=== PATIENT | male | born 1970 | race Caucasian/White ===

== ENCOUNTER 2017-06-04 23:06 | Emergency (ER) | payer OTHER ==
[~2017-06-04] VITALS: Ht 167.6 cm; Wt 127.2 kg
[2017-06-04 23:14] VITALS: Ht 167.6 cm; Wt 127.2 kg
[2017-06-04] MEDS ORDERED: morphine 4 MG/ML VIAL IV STA (23:34)
[2017-06-04] MEDS ORDERED: ONDANSETRON 4 MG INJ IV STA (23:34)
[2017-06-04] MEDS ORDERED: SOD CHLORIDE 0.9% 1,000 ML IV STA (23:34)
--- NOTE | 2017-06-04 23:48 | ERD ---
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 Patient describes the pain as sharp pain, 9/10 scale, it started after eating cereals tonight. Patient denies any nausea vomiting diarrhea or constipation. Patient denies any fever or chills. Patient denies any dyspnea on exertion or dyspnea on lying down. Patient denies any dizziness. ROS All systems reviewed and are negative except as per history of present illness. Medications Home Meds Reported Medications [none] Unknown Strength No Conflict Check 06/04/17 Allergies Allergies: Coded Allergies: No Known Allergy (Unverified , 06/04/17) PMhx/Soc Medical and Surgical Hx: pt denies Medical Hx, pt denies Surgical Hx Hx Alcohol Use: Yes (social) Hx Substance Use: No Hx Tobacco Use: Yes Smoking Status: Current every day smoker FmHx Family History: No coronary disease, No diabetes, No other Physical Exam Vitals Vital Signs Date Time Temp Pulse Resp B/P Pulse Ox O2 Delivery O2 Flow Rate FiO2 06/04/17 23:14 98.3 72 24 170/88 98 Physical Exam GENERAL: The patient is well developed and appropriate for usual state of health, in no apparent distress. CHEST: Clear to auscultation bilaterally. There are no rales, wheezes or rhonchi. HEART: Regular rate and rhythm. No murmurs, clicks, rubs or gallops. No S3 or S4. ABDOMEN: Soft, noted epigastric tenderness. Good bowel sounds. No rebound or guarding. No gross peritonitis. No gross organomegaly or masses. No Sutherland sign or McBurney point tenderness. BACK: No midline or flank tenderness. EXTREMITIES: Equal pulses bilaterally. There is no peripheral clubbing, cyanosis or edema. No focal swelling or erythema. Full range of motion. Grossly neurovascularly intact. NEURO: Alert and oriented. Cranial nerves 2-12 intact. Motor strength in all 4 extremities with 5/5 strength. Sensation grossly intact. Normal speech and gait. SKIN: There is no apparent rash or petechia. The skin is warm and dry. HEMATOLOGIC AND LYMPHATIC: There is no evidence of excessive bruising or lymphedema. No gross cervical, axillary, or inguinal lymphadenopathy. Result Diagram: 06/04/17 2345 06/04/17 2345 Results 24 hrs Laboratory Tests Test 06/04/17 23:45 White Blood Count 7.410^3/ul Red Blood Count 5.1410^6/ul Hemoglobin 16.5g/dl Hematocrit 47.5% Mean Corpuscular Volume 92.4fl Mean Corpuscular Hemoglobin 32.1pg Mean Corpuscular Hemoglobin Concent 34.7g/dl Red Cell Distribution Width 12.5% Platelet Count 64030^3/UL Mean Platelet Volume 9.9fl Neutrophils % 49.3% Lymphocytes % 39.3% Monocytes % 7.7% Eosinophils % 2.6% Basophils % 0.7% Nucleated Red Blood Cells % 0.0/100WBC Neutrophils # 3.710^3/ul Lymphocytes # 2.910^3/ul Monocytes # 0.610^3/ul Eosinophils # 0.210^3/ul Basophils # 0.110^3/ul Nucleated Red Blood Cells # 0.010^3/ul Urine Color YELLOW Urine Clarity CLEAR Urine pH 5.0 Urine Specific [place] 1.016 Urine Ketones NEGATIVEmg/dL Urine Nitrite NEGATIVEmg/dL Urine Bilirubin NEGATIVEmg/dL Urine Urobilinogen NEGATIVEmg/dL Urine Leukocyte Esterase NEGATIVELeu/ul Urine Hemoglobin NEGATIVEmg/dL Urine Glucose NEGATIVEmg/dL Urine Total Protein NEGATIVEmg/dl Sodium Level 143mmol/L Potassium Level 3.9mmol/L Chloride Level 96mmol/L Carbon Dioxide Level 32mmol/L Anion Gap 19 Blood Urea Nitrogen 16mg/dl Creatinine 0.88mg/dl Glucose Level 154mg/dl Calcium Level 9.7mg/dl Total Bilirubin 0.1mg/dl Direct Bilirubin 0.00mg/dl Indirect Bilirubin 0.1mg/dl Aspartate Amino Transf (AST/SGOT) 40IU/L Alanine Aminotransferase (ALT/SGPT) 62IU/L Alkaline Phosphatase 114IU/L Troponin I < 0.012ng/ml Total Protein 7.7g/dl Albumin 4.3g/dl Globulin 3.40g/dl Albumin/Globulin Ratio 1.26 Lipase 74U/L Current Medications Medications (Trade) Dose Ordered Sig/Scarlet Route PRN Reason Start Time Stop Time Status Last Admin Dose Admin Sodium Chloride (NS) 1,000 ml @ 1,000 mls/hr Q1H STAT IV 06/04/17 23:34 06/05/17 00:33 DC 06/04/17 23:46 Morphine Sulfate (morphine) 4 mg ONCE STAT IV 06/04/17 23:34 06/04/17 23:35 DC 06/04/17 23:47 Ondansetron HCl (Zofran Inj) 4 mg ONCE STAT IV 06/04/17 23:34 06/04/17 23:35 DC 06/04/17 23:47 Famotidine (Pepcid Iv) 20 mg ONCE ONCE IV 06/05/17 00:00 06/05/17 00:06 DC 06/05/17 00:08 Morphine Sulfate 4 mg 4 mg ONCE STAT IV 06/05/17 00:04 06/05/17 00:06 DC 06/05/17 00:10 Sodium Chloride (NS) 100 ml @ ud STK-MED ONCE .ROUTE 06/05/17 00:52 06/05/17 00:53 DC 06/05/17 00:54 Iohexol (Omnipaque 300mg/ ml) 150 ml STK-MED ONCE .ROUTE 06/05/17 00:52 06/05/17 00:53 DC 06/05/17 00:53 Hydromorphone HCl (Dilaudid) 1 mg ONCE STAT IV 06/05/17 01:26 06/05/17 01:39 DC 06/05/17 01:41 Patient was given medication for pain here in emergency department, after treatment, patient verbalized feeling much better. Patient's pain is improved. Patient was given Zofran here in the emergency department. After treatment, patient was able to tolerate po fluids here in the emergency department without any vomiting. There is no signs and symptoms of dehydration. Normal saline IV bolus was given here in emergency department for rehydration, patient tolerated IV fluids. PROCEDURE: CT Abdomen and Pelvis with IV contrast. CLINICAL INDICATION: Pain. TECHNIQUE: CT scan of the abdomen and pelvis was performed on a multidetector slice CT scanner. 100 cc of Omnipaque 300 intravenous contrast material was utilized. Sagittal and coronal reformatted images were obtained from the axial source images. Images were reviewed on a high-resolution PACS workstation. Exam CTDlvol = 24 mGy and DLP = 1717 Gy-cm. One of the following 3 dose reduction techniques were used: Automated exposure control; adjustment of the mA and/or kV according to patient size; or use of iterative reconstruction technique. COMPARISON: None. FINDINGS: There is no obstruction or ileus. The appendix is visualized and normal in size and appearance without evidence for appendicitis. There is no evidence for diverticulitis. There is no free fluid. The liver is enlarged at 22 cm length.. No intrahepatic lesions are identified. There is 3.2 x 2.4 cm calcified gallstone within the gallbladder. The gallbladder is otherwise normal in appearance. There is no definite biliary ductal dilation. Pancreas is normal in appearance. The spleen is unremarkable.. There are no adrenal masses. The aorta is normal caliber. There is a 5 mm cyst in the midpole of the left kidney. Kidneys are other normal in appearance without hydronephrosis, mass or calculus. There is no perinephric collection. Ureters are of normal caliber and without evidence for an obstructing calculus The urinary bladder is contracted.. Limited evaluation lung bases is unremarkable. There are degenerative changes of the lumbar spine. IMPRESSION: 1. No obstruction or ileus. 2. Cholelithiasis. No CT evidence for cholecystitis or biliary obstruction. 3. Hepatomegaly. 4. No evidence for appendicitis or diverticulitis. 5. No obstructive uropathy. Contracted urinary bladder. 6. Degenerative changes of the lumbar spine. RPTAT: HMVK .Bruno Jimenez MD, MD Date Time Electronically viewed and signed by .Bruno Jimenez MD, MD on 06/05/2017 01:16 .K/ CC: ADAM NEUMANN NP PROCEDURE: US Abdomen (right upper quadrant). CLINICAL INDICATION: Right upper quadrant pain TECHNIQUE: Multiple real-time longitudinal and transverse images of the right upper quadrant of the abdomen were acquired utilizing a curved array transducer. Images were reviewed on a high-resolution PACS workstation. COMPARISON: CT abdomen 06/05/2017 FINDINGS: The liver is enlarged at 24.6 cm and diffusely echogenic without focal mass. This single 1.7 cm calcified gallstone within the gallbladder. Gallbladder wall is thickened and 7.1 mm. The gallbladder is otherwise unremarkable.. There is no pericholecystic fluid . No intra or extrahepatic biliary dilatation is seen. The common bile duct measures 4.53 mm in maximal dimension. The visualized portions of the pancreas are unremarkable with obscuration of the tail of the pancreas. No free fluid is identified. . The right kidney measures 12.2 cm in length. There is normal echogenicity within the right kidney. There is no perinephric fluid collection. No hydronephrosis, mass, or calculus is seen. IMPRESSION: 1. Enlarged fatty liver. 2. There is an large calcified gallstone. Associated nonspecific wall thickening. No pericholecystic fluid. 3. No evidence for biliary obstruction. RPTAT: HMVK .Bruno Jimenez MD, MD Date Time Electronically viewed and signed by .Bruno Jimenez MD, on 06/05/2017 02:57 EKG was done, read by me and is normal sinus rhythm at a rate of 62, normal axis , there is no ST changes or changes in the EKG that indicates any cardiac emergencies at this time. Patient's EKG was also reviewed by Dr. German. Impression: no acute findings on EKG Procedures/MDM Medical Decision Making: Patient symptoms is likely consistent with biliary colic. Liver function tests are normal, lipase is normal. There is low suspicion for abdominal emergencies at this time. Patients abdominal exam is normal at this time. Patients radiology exam does not show any abdominal emergencies at this time. There is low suspicion for appendicitis, cholecystitis , abdominal aortic aneurysms or peritonitis at this time. There is low suspicion for sepsis. Patient appears well and is hemodynamically stable. Disposition: Home. Condition: Stable Prescription [place], Zokp Instructions: Patient is advised to take medications as prescribed. Patient is advised to rest, increase fluid intake and do brat diet for next 1-2 days and progress as tolerated. Patient is advised that if symptoms are worse, severe abdominal pain, uncontrolled vomiting, high fever, severe flank pain, worst signs and symptoms, to return to the emergency department immediately. Otherwise, patient can follow up with primary care doctor in 5-7 days. See patient's surgeon for possible removal of the gallbladder. Departure Diagnosis: Primary Impression: Biliary colic Condition: Stable Patient Instructions: Biliary Colic With Gallstone (Confirmed) Additional Instructions: Patient is advised to take medications as prescribed. Patient is advised to rest , increase fluid intake and do brat diet for next 1-2 days and progress as tolerated. Patient is advised that if symptoms are worse, severe abdominal pain , uncontrolled vomiting, high fever, severe flank pain, worst signs and symptoms , to return to the emergency department immediately. Otherwise, patient can follow up with primary care doctor in 5-7 days. See patient's surgeon for possible removal of the gallbladder. ADAM NEUMANN NP Jun 04, 2017 23:48
[2017-06-05] MEDS ORDERED: FAMOTIDINE 20 MG INJ IV ONE
[2017-06-05] MEDS ORDERED: morphine 4 MG/ML VIAL IV STA (00:04)
[2017-06-05 00:14] LABS: ADD UMIC NO; UR ASCORBIC ACID 40 mg/dL (NEGATIVE); UR BILIRUBIN (Dip) NEGATIVE (NEGATIVE); UR BLOOD (Dip) NEGATIVE (NEGATIVE); UR CLARITY CLEAR (CLEAR); UR COLOR YELLOW (YELLOW); UR GLUCOSE (Dip) NEGATIVE (NEGATIVE); UR KETONES (Dip) NEGATIVE (NEGATIVE); UR LEUKOCYTE ESTERASE (Dip) NEGATIVE Leu/ul (NEGATIVE); UR NITRITE (Dip) NEGATIVE (NEGATIVE); UR SPECIFIC GRAVITY (Dip) 1.016 (1.003-1.030); UR TOTAL PROTEIN (Dip) NEGATIVE (NEGATIVE); UR UROBILINOGEN (Dip) NEGATIVE (NEGATIVE)
[2017-06-05 00:28] LABS: ALBUMIN 4.3 g/dl (3.3-4.9); ALBUMIN/GLOBULIN RATIO 1.26; BILIRUBIN,INDIRECT 0.1 mg/dl (0-1.1); BILIRUBIN,TOTAL 0.1 mg/dl (0.2-1.3); CALCIUM 9.7 mg/dl (8.4-10.2); CREATININE 0.88 mg/dl (0.61-1.24); POTASSIUM 3.9 mmol/L (3.5-5.1); TOTAL PROTEIN 7.7 g/dl (6.1-8.1)
[2017-06-05 00:40] LABS: WHITE BLOOD COUNT 7.4 10^3/ul (4.8-10.8)
[2017-06-05 00:41] LABS: BASOPHIL # 0.1 10^3/ul (0.0-0.1); BASOPHILS % 0.7 % (0.0-2.0); EOSINOPHILS # 0.2 10^3/ul (0.0-0.5); EOSINOPHILS % 2.6 % (0.0-7.0); HEMATOCRIT 47.5 % (42.0-52.0); HEMOGLOBIN 16.5 g/dl (14.0-18.0); LYMPHOCYTES # 2.9 10^3/ul (0.8-2.9); LYMPHOCYTES % 39.3 % (15.0-51.0); MEAN CORPUSCULAR HEMOGLOBIN 32.1 pg (29.0-33.0); MEAN CORPUSCULAR HGB CONC 34.7 g/dl (32.0-37.0); MEAN CORPUSCULAR VOLUME 92.4 fl (82.0-101.0); MEAN PLATELET VOLUME 9.9 fl (7.4-10.4); MONOCYTE # 0.6 10^3/ul (0.3-0.9); MONOCYTES % 7.7 % (0.0-11.0); NEUTROPHIL # 3.7 10^3/ul (1.6-7.5); NEUTROPHILS % 49.3 % (39.0-77.0); PLATELET COUNT 225 10^3/UL (140-415); RED BLOOD COUNT 5.14 10^6/ul (4.70-6.10); RED CELL DISTRIBUTION WIDTH 12.5 % (11.5-14.5)
[2017-06-05] MEDS ORDERED: SOD CHLORIDE 0.9% 100 ML ONE (00:52)
[2017-06-05] MEDS ORDERED: IOHEXOL 300MG/ML 150 ML BTL ONE (00:52)
--- NOTE | 2017-06-05 01:17 | RADRPT ---
PROCEDURE: CT Abdomen and Pelvis with IV contrast. CLINICAL INDICATION: Pain. TECHNIQUE: CT scan of the abdomen and pelvis was performed on a multidetector slice CT scanner. 100 cc of Omnipaque 300 intravenous contrast material was utilized. Sagittal and coronal reformatted i mages were obtained from the axial source images. Images were reviewed on a high-resolution PACS wor kstation. Exam CTDlvol = 24 mGy and DLP = 1717 Gy-cm. One of the following 3 dose reduction techniqu es were used: Automated exposure control; adjustment of the mA and/or kV according to patient size; or use of iterative reconstruction technique. COMPARISON: None. FINDINGS: There is no obstruction or ileus. The appendix is visualized and normal in size and appearance with out evidence for appendicitis. There is no evidence for diverticulitis. There is no free fluid. The liver is enlarged at 22 cm length.. No intrahepatic lesions are identified. There is 3.2 x 2.4 c m calcified gallstone within the gallbladder. The gallbladder is otherwise normal in appearance. Th ere is no definite biliary ductal dilation. Pancreas is normal in appearance. The spleen is unremark able.. There are no adrenal masses. The aorta is normal caliber. There is a 5 mm cyst in the midpole of the left kidney. Kidneys are other normal in appearance with out hydronephrosis, mass or calculus. There is no perinephric collection. Ureters are of normal shantel reginald and without evidence for an obstructing calculus The urinary bladder is contracted.. Limited evaluation lung bases is unremarkable. There are degenerative changes of the lumbar spine. IMPRESSION: 1. No obstruction or ileus. 2. Cholelithiasis. No CT evidence for cholecystitis or biliary obstruction. 3. Hepatomegaly. 4. No evidence for appendicitis or diverticulitis. 5. No obstructive uropathy. Contracted urinary bladder. 6. Degenerative changes of the lumbar spine. RPTAT: HMVK .Bruno Jimenez MD, Date Time Electronically viewed and signed by .Bruno Jimenez MD, MD on 06/05/2017 01:16 .K/
[2017-06-05] MEDS ORDERED: HYDROmorphONE 1 MG/ML SYG IV STA (01:26)
--- NOTE | 2017-06-05 02:57 | RADRPT ---
PROCEDURE: US Abdomen (right upper quadrant). CLINICAL INDICATION: Right upper quadrant pain TECHNIQUE: Multiple real-time longitudinal and transverse images of the right upper quadrant of th e abdomen were acquired utilizing a curved array transducer. Images were reviewed on a high-resoluti on PACS workstation. COMPARISON: CT abdomen 06/05/2017 FINDINGS: The liver is enlarged at 24.6 cm and diffusely echogenic without focal mass. This single 1.7 cm maribel cified gallstone within the gallbladder. Gallbladder wall is thickened and 7.1 mm. The gallbladder i s otherwise unremarkable.. There is no pericholecystic fluid . No intra or extrahepatic biliary di latation is seen. The common bile duct measures 4.53 mm in maximal dimension. The visualized porti ons of the pancreas are unremarkable with obscuration of the tail of the pancreas. No free fluid is identified. . The right kidney measures 12.2 cm in length. There is normal echogenicity within the right kidney. There is no perinephric fluid collection. No hydronephrosis, mass, or calculus is seen. IMPRESSION: 1. Enlarged fatty liver. 2. There is an large calcified gallstone. Associated nonspecific wall thickening. No pericholecys tic fluid. 3. No evidence for biliary obstruction. RPTAT: HMVK .Bruno Jimenez MD, Date Time Electronically viewed and signed by .Bruno Jimenez MD, MD on 06/05/2017 02:57 .K/
[2017-06-05] MEDS ORDERED: HYDR-902 PO (03:08)
[2017-06-05] MEDS ORDERED: ONDA4TAB14 PO (03:08)
[2017-06-05 04:15] VITALS: BP 140/91; PULSE 85; RESP 16
== END 2017-06-05 04:16 | disposition home or self-care (01) ==
LOC: FTE 23:06
DX: K80.50 Calculus of bile duct without cholangitis or cholecystitis without obstruction (principal); F17.210 Nicotine dependence, cigarettes, uncomplicated
CPT/HCPCS: 74177; 76705; 80053; 81003; 83690; 84484; 85025; 93005; J1170; J2270; J2405; J7030; Q9967; Z7610; 36415; 96374; 96375; 96376

== ENCOUNTER 2018-08-20 04:01 | Emergency (ER) | END 2018-08-20 04:33 | disposition home or self-care (01) ==

== ENCOUNTER 2018-08-21 02:33 | Emergency (ER) | END 2018-08-21 03:52 | disposition home or self-care (01) ==

== ENCOUNTER 2018-09-05 14:26 | Emergency (ER) | END 2018-09-05 19:10 | disposition home or self-care (01) ==

== ENCOUNTER 2018-09-08 18:53 | Inpatient (IN) | END 2018-09-10 14:51 | disposition home or self-care (01) | DRG 445 ==

== ENCOUNTER 2018-09-24 05:46 | Inpatient (IN) | END 2018-09-26 13:15 | disposition home or self-care (01) | DRG 419 ==